=== PATIENT | female | born 1940 | race Asian ===

== ENCOUNTER 2016-05-07 23:20 | Inpatient (IN) | payer MEDICARE, OTHER ==
[2016-05-08 01:27] VITALS: BP 139/83
[2016-05-08] MEDS ORDERED: Morphine Sulfate 2 mg/mL 1mL Syr IVP PRN (01:38)
[2016-05-08] MEDS: Sodium Chloride 0.9% 1,000 ML IV SCH ×2 (03:36→20:53)
[2016-05-08 05:24] LABS: HEMATOCRIT 34.7 % (35.0-45.0); MEAN CELL VOLUME 92.6 fl (81-100); MEAN CORPUSCULAR HEMOGLOBIN 32.1 pg (27.0-31.0); MEAN CORPUSCULAR HGB CONC 34.7 pg (28.0-36.0); MEAN PLATELET VOLUME 9.3 fl; PLATELET COUNT 121 Th/cmm (150-400); RED BLOOD COUNT 3.75 Mil/cmm (3.80-5.20); RED CELL DISTRIBUTION WIDTH 12.7 % (11.5-20.0)
[2016-05-08 05:57] LABS: ALB/GLOB RATIO 1.4 (1.0-1.8); ALKALINE PHOSPHATASE 48 U/L (34-104); BILIRUBIN,TOTAL 0.6 mg/dL (0.3-1.0); BUN - UREA NITROGEN 16 mg/dL (7-25); BUN/CREATININE RATIO 26.7; CALCIUM SERUM 9.4 mg/dL (8.6-10.3); CARBON DIOXIDE 26.6 mEq/L (21.0-31.0); CHLORIDE 109 mEq/L (98-107); CREATININE - SERUM 0.6 mg/dL (0.6-1.2); GLUCOSE 89 mg/dL (70-105); POTASSIUM SERUM 3.6 mEq/L (3.5-5.1); SGOT 16 U/L (13-39); SGPT/ALT 12 U/L (7-52); SODIUM SERUM 138 mEq/L (136-145)
[2016-05-08] MEDS: Pantoprazole 40 mg/Packet PO SCH (06:39)
[2016-05-08 07:12] LABS: BAND NEUTROPHILE 0 % (0-10); TOTAL CELLS COUNTED 100
[2016-05-08 07:13] LABS: EOSINOPHIL 1 % (0-5); NEUTROPHILS 46 % (40-80); PLATELET ESTIMATE DECREASED PLATELETS (NORMAL)
[2016-05-08] MEDS: Aspirin 81mg Chewable Tab PO SCH (08:56)
[2016-05-08] MEDS ORDERED: Pantoprazole 40 mg EC Tab PO SCH (09:00)
[2016-05-08] MEDS: INSULIN ASPART SLIDING SCALE 100 UNITS/ML UNIT SUBQ SCH ×3 (12:08→20:32)
--- NOTE | 2016-05-08 13:32 | General Progress Note ---
Subjective - Review of Systems Service Date: 05/08/16 Subjective: I feel better Objective - Results Result Diagrams: 05/08/16 04:55 05/08/16 04:55 Recent Labs: Laboratory Last Values WBC 5.0 Th/cmm (4.8-10.8) 05/08/16 04:55 RBC 3.75 Mil/cmm (3.80-5.20) L 05/08/16 04:55 Hgb 12.0 gm/dL (11.7-16.1) 05/08/16 04:55 Hct 34.7 % (35.0-45.0) L 05/08/16 04:55 MCV 92.6 fl (81-100) 05/08/16 04:55 MCH 32.1 pg (27.0-31.0) H 05/08/16 04:55 MCHC Differential 34.7 pg (28.0-36.0) 05/08/16 04:55 RDW 12.7 % (11.5-20.0) 05/08/16 04:55 Plt Count 121 Th/cmm (150-400) L 05/08/16 04:55 MPV 9.3 fl 05/08/16 04:55 Band Neutrophils % 0 % (0-10) 05/08/16 04:55 Neutrophils (Manual) 46 % (40-80) 05/08/16 04:55 Lymphocytes 45 % (20-50) 05/08/16 04:55 Monocytes 8 % (2-10) 05/08/16 04:55 Eosinophils 1 % (0-5) 05/08/16 04:55 Platelet Estimate DECREASED PLATELETS (NORMAL) 05/08/16 04:55 Sodium 138 mEq/L (136-145) 05/08/16 04:55 Potassium 3.6 mEq/L (3.5-5.1) 05/08/16 04:55 Chloride 109 mEq/L (98-107) H 05/08/16 04:55 Carbon Dioxide 26.6 mEq/L (21.0-31.0) 05/08/16 04:55 Anion Gap 6.0 (7.0-16.0) L 05/08/16 04:55 BUN 16 mg/dL (7-25) 05/08/16 04:55 Creatinine 0.6 mg/dL (0.6-1.2) 05/08/16 04:55 Est GFR ( Amer) TNP 05/08/16 04:55 Est GFR (Non-Af Amer) TNP 05/08/16 04:55 BUN/Creatinine Ratio 26.7 05/08/16 04:55 Glucose 89 mg/dL (70-105) 05/08/16 04:55 POC Glucose 143 MG/DL (70 - 105) H 05/08/16 12:06 Calcium 9.4 mg/dL (8.6-10.3) 05/08/16 04:55 Total Bilirubin 0.6 mg/dL (0.3-1.0) 05/08/16 04:55 AST 16 U/L (13-39) 05/08/16 04:55 ALT 12 U/L (7-52) 05/08/16 04:55 Alkaline Phosphatase 48 U/L (34-104) 05/08/16 04:55 Troponin I 0.02 ng/mL (0.01-0.05) 05/08/16 04:55 Total Protein 6.4 gm/dL (6.0-8.3) 05/08/16 04:55 Albumin 3.7 gm/dL (3.7-5.3) 05/08/16 04:55 Globulin 2.7 gm/dL 05/08/16 04:55 Albumin/Globulin Ratio 1.4 (1.0-1.8) 05/08/16 04:55 TSH 2.90 uIU/ml (0.34-5.60) 05/08/16 04:55 - Physical Exam Vitals and I&O: Vital Signs Temp 98.1 F 05/08/16 12:05 Pulse 84 05/08/16 12:05 Resp 18 05/08/16 12:05 BP 112/54 05/08/16 12:05 Pulse Ox 96 05/08/16 12:05 Intake & Output 05/07/16 05/08/16 05/08/16 18:59 06:59 18:59 Intake Total 120 Balance 120 Weight (lbs) 47.627 kg Intake: Oral 120 Other: # Voids 3 Active Medications: Current Medications Acetaminophen (Tylenol) 650 mg PO Q4H PRN PRN Reason: Pain or Fever >101 Stop: 07/07/16 01:40 Aspirin (Aspirin Chewable) 81 mg PO DAILY [facility] Stop: 07/07/16 08:59 Last Admin: 05/08/16 08:56 Dose: 81 mg Carvedilol (Coreg) 12.5 mg PO BID [facility] Stop: 07/07/16 08:59 Last Admin: 05/08/16 08:52 Dose: 12.5 mg Furosemide (Lasix) 40 mg PO DAILY [facility] Stop: 07/07/16 08:59 Last Admin: 05/08/16 08:56 Dose: 40 mg Sodium Chloride (Nacl 0.9%) 1,000 mls @ 50 mls/hr IV .Q20H [facility] Stop: 07/07/16 01:39 Last Admin: 05/08/16 03:36 Dose: 50 mls/hr Insulin Aspart (Novolog Insulin Sliding Scale) 0 units SUBQ ACHS [facility] PRN Reason: Protocol Stop: 07/07/16 11:29 Last Admin: 05/08/16 12:08 Dose: Not Given Insulin Detemir (Levemir Insulin) 20 units SUBQ HS [facility] PRN Reason: Protocol Stop: 07/07/16 20:59 Lisinopril (Zestril) 5 mg PO BID [facility] Stop: 07/07/16 08:59 Last Admin: 05/08/16 08:56 Dose: 5 mg Montelukast Sodium (Singulair) 10 mg PO HS [facility] Stop: 07/07/16 20:59 Morphine Sulfate (Morphine) 1 mg IVP Q4HR PRN PRN Reason: Pain (Moderate) Stop: 07/07/16 01:37 Ondansetron HCl (Zofran) 4 mg IV Q8H PRN PRN Reason: Nausea / Vomiting Stop: 07/07/16 01:40 Pantoprazole Sodium (Protonix) 40 mg PO DAILY [facility] Stop: 07/07/16 06:29 Last Admin: 05/08/16 06:39 Dose: 40 mg Simvastatin (Zocor) 20 mg PO HS [facility] PRN Reason: Protocol Stop: 07/07/16 20:59 Zolpidem Tartrate (Ambien) 5 mg PO HS [facility] Stop: 07/07/16 20:59 General: Alert, Oriented x3, Cooperative, No acute distress, Moderate distress Lungs: Clear to auscultation Abdomen: Bowel sounds, Soft Extremities: Other (No edema) Neurological: Normal gait Skin: Other (Warm and dry) Psych/Mental Status: Mental status NL Assessment/Plan - Assessment Assessment: Patient is awake, alert calm, in no acute distress. DX: Chest pain, CHF, EF 15% , DM, HTN, Hyperlipidemia - Plan Plan: Patient in lisinopril , Beta blockers, aspirin, and morphine for pain control, Insulin sliding scale. Awaiting cardio eval.
--- NOTE | 2016-05-08 16:39 | History & Physical ---
CHIEF COMPLAINT: Chest pain. HISTORY OF PRESENT ILLNESS: This is the case of a 75-year-old female who has history of congestive heart failure with EF of 50% and pacemaker placement. The patient went to [facility] secondary to her chest pain. She referred that 2 days ago, she started with chest pain. She used nitroglycerin once and the patient felt better. Later, the patient ____, reason why she went to ER. The patient was transferred from [facility] to this hospital to continue treatment. PAST MEDICAL HISTORY: The patient has past medical history of congestive heart failure, diabetes mellitus, hypertension, and hyperlipidemia. MEDICATIONS: Reviewed. ALLERGIES: THE PATIENT IS ALLERGIC TO BACTRIM AND ERYTHROMYCIN. SOCIAL HISTORY: The patient denies use of alcohol or drugs. The patient lives with family at home. PAST SURGICAL HISTORY: The patient has history of ____ and pacemaker placement. REVIEW OF SYSTEMS: LUNGS: The patient denies shortness of breath. HEART: The patient referred chest pain. ABDOMEN: Unremarkable. EXTREMITIES: Unremarkable. PHYSICAL EXAMINATION: GENERAL: Does reveal a fairly nourished and developed female, awake, alert, in no acute distress. LUNGS: Bilateral air entry. No wheezing. No crackles. HEENT: Normocephalic and atraumatic. Eyes: Pupils reactive to light. Nose: No evidence of nasal obstruction. Ears: No evidence of any discharge. Mouth: Fairly ____. HEART: Regular rhythm. ABDOMEN: Soft, nontender, bowel sound present. EXTREMITIES: No edema. Full movement of all extremities. NEUROLOGICAL: The patient is awake, alert, in no acute distress. Nerves, 2-12 grossly intact. No neurological deficit at this moment. IMPRESSION: 1. ____. 2. Diabetes mellitus. 3. Congestive heart failure. 4. Hypertension. 5. Hyperlipidemia. PLAN: 1. The patient will be admitted in the telemetry unit. 2. The patient will be started on IV normal saline. 3. The patient will be continued with home medications. 4. Consult with Cardiology, Dr. Blanco Winters. 5. Diabetic diet, low in sodium. 6. Insulin sliding scale. 7. CBC, CMP and troponin. JOB# [id number]
[2016-05-08] MEDS ORDERED: Insulin Detemir 100 units/mL 10mL Vial SUBQ SCH (21:00)
[2016-05-09] MEDS: INSULIN ASPART SLIDING SCALE 100 UNITS/ML UNIT SUBQ SCH (06:34)
[2016-05-09 06:40] LABS: % BASOPHILS 0.1 % (0.0-2.0); % LYMPHOCYTES 39.2 % (20.0-50.0); % NEUTROPHILS 48.7 % (40.0-80.0); HEMOGLOBIN 12.7 gm/dL (11.7-16.1); MEAN CORPUSCULAR HEMOGLOBIN 32.3 pg (27.0-31.0); MEAN CORPUSCULAR HGB CONC 34.3 pg (28.0-36.0); MEAN PLATELET VOLUME 9.5 fl; NEUTROPHILE ABSOLUTE 2.3 Th/cmm (1.8-8.0); PLATELET COUNT 128 Th/cmm (150-400); RED BLOOD COUNT 3.94 Mil/cmm (3.80-5.20); RED CELL DISTRIBUTION WIDTH 12.5 % (11.5-20.0); WHITE BLOOD COUNT 4.7 Th/cmm (4.8-10.8)
[2016-05-09 08:08] LABS: ALB/GLOB RATIO 1.3 (1.0-1.8); ALKALINE PHOSPHATASE 48 U/L (34-104); ANION GAP 7.6 (7.0-16.0); BILIRUBIN,TOTAL 0.5 mg/dL (0.3-1.0); BUN - UREA NITROGEN 19 mg/dL (7-25); BUN/CREATININE RATIO 27.1; CALCIUM SERUM 9.7 mg/dL (8.6-10.3); CARBON DIOXIDE 27.2 mEq/L (21.0-31.0); CHLORIDE 108 mEq/L (98-107); CREATININE - SERUM 0.7 mg/dL (0.6-1.2); GLUCOSE 143 mg/dL (70-105); POTASSIUM SERUM 3.8 mEq/L (3.5-5.1); SGOT 23 U/L (13-39); SGPT/ALT 19 U/L (7-52); SODIUM SERUM 139 mEq/L (136-145)
[2016-05-09] MEDS: Aspirin 81mg Chewable Tab PO SCH (08:36)
[2016-05-09] MEDS: Pantoprazole 40 mg/Packet PO SCH (08:38)
--- NOTE | 2016-05-09 19:37 | Cardiology ---
ECHOCARDIOGRAM REPORT M-MODE ECHOCARDIOGRAM: Mitral valve, anterior leaflet of mitral valve shows decreased excursion, EF velocity. Posterior leaflet of mitral valve shows decreased excursion. Left ventricular posterior wall showed normal thickness, decreased excursion. Interventricular septum showed normal thickness, decreased excursion, ejection fraction 10%. Left atrium normal. Aortic root shows normal dimension, normal excursion of aortic leaflets. CONCLUSION: Cardiomyopathy, ejection fraction 10%. 2D ECHOCARDIOGRAM: A 2D echo on the same patient, long axis view shows enlarged left ventricular cavity with global hypokinesis. The mitral valve shows decreased excursion. Left atrium normal. Aortic root shows normal dimension, normal excursion of aortic leaflets. Short axis view of mitral valve normal. Short axis view aortic valve normal. Apical four-chamber view shows enlarged left ventricular cavity with decreased ejection fraction. Left atrium normal. Right ventricular cavity, right atrium normal. There is a moderate pericardial effusion. CONCLUSION: Cardiomyopathy, moderate pericardial effusion. Ejection fraction 10%. JOB# [id number]
--- NOTE | 2016-05-09 23:57 | Consultation ---
The patient of Dr. Aaron. HISTORY AND PHYSICAL: This 75 years old female patient who has a known history of cardiomyopathy with AICD placement, had complained of chest pain. Following this, the patient was seen in Emergency Room at [facility]. The patient was stable and transferred to [facility]. No history of PND. PAST MEDICAL HISTORY: Congestive heart failure, systolic dysfunction, cardiomyopathy, hypertension, ventricular arrhythmias with AICD placement, sick sinus syndrome with pacemaker, hyperlipidemia, diabetes mellitus type 2. FAMILY HISTORY: Unremarkable. SOCIAL HISTORY: No history of smoking or alcohol abuse. ALLERGIES: BACTRIM AND ERYTHROMYCIN. PHYSICAL EXAMINATION: VITAL SIGNS: Blood pressure 110/70, pulse 88, respirations 28. HEAD: Normocephalic. No lumps or bumps. EYES: Pupils equal, reactive to light. Fundi show AV nicking, sclerae white, conjunctivae pink. NECK: Carotid 2+. Normal upstroke. JVD 10 cm above the sternal angle. Thyroid not palpable. Lymph nodes not palpable. CHEST: Shows increased AP diameter. No kyphosis or scoliosis. LUNGS: Bilateral rales. Decreased breath sounds both the bases. HEART: PMI sixth intercostal space with lateral to midclavicular line. S1, S2, S3, S4, systolic murmur, grade 2/6, lower left sternal border without radiation. ABDOMEN: Soft. Liver, spleen not palpable. Hepatojugular reflux. Positive bowel sounds active. NEUROLOGIC: Unremarkable. EXTREMITIES: Peripheral pulses 2+. No pedal edema. CLINICAL IMPRESSION: Atypical chest pain, congestive heart failure, diastolic dysfunction [id number], ventricular arrhythmias with AICD placement, hypertension, hyperlipidemia, diabetes mellitus type 2, moderate pericardial effusion. The patient's ejection fraction is 10%. PLAN: To continue present care and monitor the patient closely with anticoagulation. JOB# [id number]
--- NOTE | 2016-05-21 21:03 | Discharge Summary ---
HISTORY OF PRESENT ILLNESS: This is the case of a 75-year-old female who has history of CHF with ejection fraction of ____ and pacemaker placement. The patient went to Emergency Room [facility] secondary to chest pain. She referred pain for 2 days that was relieved with nitroglycerin. The patient was transferred to this hospital to continue treatment. HOSPITAL COURSE AND TREATMENT: This patient was hospitalized in the telemetry unit. She was started with IV normal saline. She was continued with older that home medications. Consult with Dr. Blanco Winters, Cardiology was done and recommendations were followed. She had low sodium and diabetic diet. She was put on insulin scale and labs were requested During all hospitalization, troponins were normal. On 05/09/2016, case was discussed with Cardiology and decision was made to discharge the patient home to continue treatment with primary care physician. On the day of the discharge, patient was awake, alert, in no acute distress, with no chest pain. [employer]: In this case: Dr. Blanco Winters, Cardiology. DISPOSITION: The patient is sent home to continue treatment with primary care physician. IMPRESSION: 1. Atypical chest pain. 2. Diabetes mellitus. 3. Congestive heart failure. 4. Hypertension. 5. Hyperlipidemia. JOB# [id number]
== END 2016-05-09 14:12 | disposition home or self-care (01) | DRG 292 ==
LOC: EDSEX 23:20 → TELE 23:20
PROVIDERS: ADMIT General Practice; ATTEND General Practice
DX: I50.33 Acute on chronic diastolic (congestive) heart failure (principal); I31.3 Pericardial effusion (noninflammatory); I42.9 Cardiomyopathy, unspecified; I11.0 Hypertensive heart disease with heart failure; E11.9 Type 2 diabetes mellitus without complications; E78.5 Hyperlipidemia, unspecified; R07.89 Other chest pain; Z95.0 Presence of cardiac pacemaker; Z88.1 Allergy status to other antibiotic agents; Z88.8 Allergy status to other drugs, medicaments and biological substances; Z88.2 Allergy status to sulfonamides
CPT/HCPCS: 36415-UA; 80053-TC; 82948-90; 84443-TC; 84484-TC; 85007-TC; 85025-TC; 85027-TC; 93005; J1815; J7030; Z7610